=== PATIENT | male | born 1960 | race Caucasian/White ===

== ENCOUNTER → 2020-08-15 14:41 | Outpatient (ROUT) | payer OTHER, SELFPAY ==
[2020-08-15 15:11] LABS: COVID19 -Nasal RAPID Negative (Negative)
== END ==
PROVIDERS: Visit Provider Family Medicine
DX: R05 Cough (principal); R68.83 Chills (without fever); Z20.822 Contact with and (suspected) exposure to COVID-19
CPT/HCPCS: 87635

== ENCOUNTER → 2023-05-05 15:24 | Outpatient (CLI) | payer OTHER, SELFPAY ==
[2023-05-05 16:28] LABS: Influenza A - CEPHEID Flu A NEGATIVE (NEGATIVE); Influenza B - CEPHEID Flu B NEGATIVE (NEGATIVE); Respiratory Syncytial Virus Negative (Negative)
[2023-05-05 16:30] LABS: COVID-19 CEPHEID 4-PLEX PCR Negative (Negative)
== END ==
PROVIDERS: Visit Provider Student in an Organized Health Care Education/Training Program
DX: R05.1 Acute cough (principal)
CPT/HCPCS: 0241U